=== PATIENT | female | born 1985 | race Caucasian/White ===

== ENCOUNTER 2019-12-09 16:57 | Emergency (ER) | payer OTHER ==
[~2019-12-09] VITALS: Ht 157.5 cm; Wt 59.1 kg
[2019-12-09 18:32] VITALS: BP 118/66
[2019-12-09] MEDS ORDERED: NORCO 325 MG-51 TA1 PO (18:50)
== END 2019-12-09 19:05 | disposition home or self-care (01) ==
LOC: ED 16:57
DX: S42.002A Fracture of unspecified part of left clavicle, initial encounter for closed fracture (principal); V80.010A Animal-rider injured by fall from or being thrown from horse in noncollision accident, initial encounter; Y92.009 Unspecified place in unspecified non-institutional (private) residence as the place of occurrence of the external cause